=== PATIENT | male | born 1960 | race Caucasian/White ===

== ENCOUNTER → 2024-05-13 07:32 | Outpatient (REF) | payer OTHER, SELFPAY ==
[2024-05-13 08:59] LABS: Blood Urea Nitrogen 15 mg/dl (9-20); Calcium 9.5 mg/dl (8.4-10.2); Carbon Dioxide 26 mmol/L (22-30); Chloride 101 mmol/L (98-107); Glucose 107 mg/dl (70-99); Potassium 4.7 mmol/L (3.5-5.1); Sodium 141 mmol/L (135-145); eGFR > 60.00
[2024-05-15 00:19] LABS: PSA Total 16.9 ng/mL (0.0-4.0)
== END ==
LOC: REG 07:32
PROVIDERS: ATTENDING PHYSICIAN Urology; FAMILY PHYSICIAN Family Medicine
DX: N40.1 Benign prostatic hyperplasia with lower urinary tract symptoms (principal); N13.8 Other obstructive and reflux uropathy; R33.9 Retention of urine, unspecified; R35.1 Nocturia
CPT/HCPCS: 36415; 80048; 84153; 84154

== ENCOUNTER → 2024-08-02 10:45 | Outpatient (REF) | payer OTHER, SELFPAY | LOC: MRI 3T 10:45 | PROVIDERS: ATTENDING PHYSICIAN Urology | DX: N40.1 Benign prostatic hyperplasia with lower urinary tract symptoms (principal); N13.8 Other obstructive and reflux uropathy; R33.9 Retention of urine, unspecified; R35.1 Nocturia | CPT/HCPCS: 72197; A9575 ==

== ENCOUNTER → 2024-10-15 08:13 | Outpatient (REF) | payer OTHER, SELFPAY ==
[2024-10-15 10:04] LABS: Blood Urea Nitrogen 14 mg/dl (9-20); Calcium 9.4 mg/dl (8.4-10.2); Carbon Dioxide 28 mmol/L (22-30); Chloride 105 mmol/L (98-107); Glucose 104 mg/dl (70-99); Sodium 141 mmol/L (135-145); eGFR > 60.00
== END ==
LOC: REG 08:13
PROVIDERS: ATTENDING PHYSICIAN Urology
DX: N40.1 Benign prostatic hyperplasia with lower urinary tract symptoms (principal); N13.8 Other obstructive and reflux uropathy; R33.9 Retention of urine, unspecified; R35.1 Nocturia
CPT/HCPCS: 36415; 80048

== ENCOUNTER → 2024-10-21 12:29 | Outpatient (REF) | payer OTHER, SELFPAY | LOC: RAD 12:29 | PROVIDERS: ATTENDING PHYSICIAN Urology | DX: R31.0 Gross hematuria (principal) | CPT/HCPCS: 74178; Q9967 ==

== ENCOUNTER → 2025-05-19 10:27 | Outpatient (REF) | payer OTHER, SELFPAY ==
[2025-05-19 12:59] LABS: PSA, Total - Diagnostic 8.92 ng/ml (0.0-4.0)
== END ==
LOC: REG 10:27
PROVIDERS: ATTENDING PHYSICIAN Urology
DX: N40.1 Benign prostatic hyperplasia with lower urinary tract symptoms (principal); N13.8 Other obstructive and reflux uropathy; N21.0 Calculus in bladder
CPT/HCPCS: 36415; 84153